=== PATIENT | female | born 1990 | race Hispanic/Latino ===

== ENCOUNTER 2017-07-24 20:44 | Emergency (ER) | payer MEDICAID, OTHER ==
[2017-07-24 20:44] VITALS: BMI 33.6
[2017-07-24 21:02] VITALS: BP 104/76; PULSE 80; RESP 14; TEMP 98.2; O2SAT 98
--- NOTE | 2017-07-24 22:03 | C.PDOC ---
History Of Present Illness 26 y/o female with PMHx of chronic low back pain presents to the ED complaining of exacerbation of back pain for the last 4 days. Patient denies any abdominal pain, dysuria, frequency, incontinence of urine/stool, fever, chills, numbness, tingling, or radiation of pain. Plant Protection Guard states patient took Tylenol at home with minimal relief, and requests stronger pain medication be given in the ED. Time Seen by Provider: 07/24/17 21:15 Chief Complaint (Nursing): Back Pain History Per: Patient History/Exam Limitations: no limitations Onset/Duration Of Symptoms: Days Current Symptoms Are (Timing): Still Present Previous Symptoms: Chronic Pain Past Medical History Reviewed: Historical Data, Nursing Documentation, Vital Signs Vital Signs: Last Vital Signs Temp 98.2 F 07/24/17 20:59 Pulse 80 07/24/17 20:59 Resp 14 07/24/17 20:59 BP 104/76 07/24/17 20:59 Pulse Ox 98 07/25/17 00:05 - Medical History PMH: Anemia, Bipolar Disorder, Gastritis Denies: Depression, Chronic Kidney Disease Surgical History: - [facility] Procedures INJECT/INFUSE ELECTROLYT (08/07/12) INJECT/INFUSE NEC (09/18/14) VENOUS PUNCTURE NEC (06/19/11) Family History: States: No Known Family Hx - Social History Hx Tobacco Use: Yes Hx Alcohol Use: Yes Hx Substance Use: No - Immunization History Hx Tetanus Toxoid Vaccination: No Hx Influenza Vaccination: No Hx Pneumococcal Vaccination: No Review Of Systems Constitutional: Negative for: Fever, Chills Genitourinary: Negative for: Dysuria, Frequency, Incontinence Musculoskeletal: Positive for: Back Pain Neurological: Negative for: Weakness, Numbness Physical Exam - Physical Exam Appears: Non-toxic, No Acute Distress Skin: Normal Color, Warm, Dry Head: Atraumatic, Normacephalic Eye(s): bilateral: Normal Inspection, PERRL, EOMI Oral Mucosa: Moist Neck: Normal ROM, Supple Chest: Symmetrical Cardiovascular: Rhythm Regular Respiratory: No Accessory Muscle Use Gastrointestinal/Abdominal: Soft, No Tenderness, No Distention Back: Normal Inspection, Vertebral Tenderness (tenderness across the lumbosacral region), No Decreased ROM, Straight Leg Raising (negative) Extremity: Normal ROM (with full ROM of lower extremities), No Tenderness, No Deformity Extremity: Bilateral: Atraumatic, Normal Color And Temperature Pulses: Left Dorsalis Pedis: Normal, Right Dorsalis Pedis: Normal Neurological/Psych: Oriented x3, Normal Speech, Normal Motor, Normal Sensation, Other (No focal deficits) Gait: Steady ED Course And Treatment O2 Sat by Pulse Oximetry: 98 (RA) Pulse Ox Interpretation: Normal Progress Note: Patient advised to take Motrin for pain control and follow up with PMD for further evaluation. Also offered Flexeril prescription to take home. Patient now reports concern for . Informed patient of negative urine HCG. Patient is not satisfied and requests blood test prior to receiving rx for muscle relaxant. LMP was 06/08/17. Of note, patient has history of irregular menses. Patient advised that confirmation of thru blood is not necessary for motrin at this time. Informed patient that further testing is not indicated in the ED at this time and she needs OB follow up if concern. Patient is unhappy with discharge plan, and left the ED without discharge instructions/prescriptions. Disposition Counseled Patient/Family Regarding: Diagnosis, Need For Followup - Disposition Disposition: ELOPEMENT - ER ONLY Disposition Time: 22:02 Condition: STABLE Forms: [facility] ([place]) - POA Present On Arrival: None - Clinical Impression Clinical Impression: Low back pain - PA / NIB ASSEMBLER / Resident Statement MD/DO has reviewed & agrees with the documentation as recorded. - Scribe Statement The provider has reviewed the documentation as recorded by the Scribe (Gia Smith) All medical record entries made by the Scribe were at my direction and personally dictated by me. I have reviewed the chart and agree that the record accurately reflects my personal performance of the history, physical exam, medical decision making, and the department course for this patient. I have also personally directed, reviewed, and agree with the discharge instructions and disposition.
== END 2017-07-24 21:15 | disposition left against medical advice (07) ==
LOC: C.ER 20:44
DX: M54.5 Low back pain (principal)

== ENCOUNTER 2017-08-15 18:20 | Emergency (ER) | payer MEDICAID, OTHER ==
[2017-08-15 18:20] VITALS: BMI 33.6
[2017-08-15 18:38] VITALS: RESP 18; TEMP 98.1
[2017-08-15] MEDS ORDERED: Sodium Chloride 0.9% 1,000 ML IV ONE (19:06)
[2017-08-15] MEDS ORDERED: Sodium Chloride 0.9% 1,000 ML ONE (19:23)
[2017-08-15 19:24] LABS: BASO % 0.7 % (0.0-2.0); EOS # 0.1 K/uL (0.0-0.7); EOS % 1.4 % (0.0-4.0); HEMOGLOBIN 11.6 g/dL (11.0-16.0); LYMPH # 2.1 K/uL (1.0-4.3); MEAN CELL VOLUME 76.2 fL (81.0-99.0); MEAN CORPUSCULAR HEMOGLOBIN 24.5 pg (27.0-31.0); MEAN CORPUSCULAR HGB CONC 32.1 g/dL (33.0-37.0); MEAN PLATELET VOLUME 8.9 fL (7.2-11.7); MONO # 0.3 K/uL (0.0-0.8); MONO % 5.5 % (0.0-10.0); NEUT # 3.4 K/uL (1.8-7.0); NEUT % 57.4 % (50.0-75.0); NRBC % 0.1 % (0.0-2.0); RBC 4.75 Mil/uL (3.80-5.20); WHITE BLOOD COUNT 5.9 K/uL (4.8-10.8)
[2017-08-15 19:30] LABS: HCG,QUALITATIVE URINE NEGATIVE (NEGATIVE)
[2017-08-15 19:35] LABS: SQUAMOUS EPITHIAL 19 /hpf (0-5); URINE BACTERIA RARE (<OCC); URINE BILIRUBIN NEGATIVE (NEGATIVE); URINE BLOOD NEGATIVE (NEGATIVE); URINE CALCIUM OXALATE CRYSTALS MOD /hpf (<OCC); URINE CLARITY Hazy (Clear); URINE COLOR Yellow (YELLOW); URINE GLUCOSE (UA) NORMAL (Normal); URINE LEUKOCYTE ESTERASE 2+ Leu/uL (Negative); URINE PROTEIN NEGATIVE (NEGATIVE); URINE UROBILINOGEN NORMAL mg/dL (0.2-1.0)
[2017-08-15 19:37] LABS: ALB/GLOB RATIO 1.7 (1.0-2.1); ALBUMIN 4.3 g/dL (3.5-5.0); ALT/SGPT 19 U/L (9-52); AST/SGOT 17 U/L (14-36); BLOOD UREA NITROGEN 8 mg/dL (7-17); CALCIUM 9.3 mg/dl (8.6-10.4); GFR AFRICAN-AMERICAN > 60; GFR NON-AFRICAN AMERICAN > 60; LIPASE 36 U/L (23-300)
[2017-08-15 19:45] LABS: BARBITURATES, UR NEGATIVE (NEGATIVE); BENZODIAZEPINES, UR NEGATIVE (NEGATIVE); OPIATES, UR NEGATIVE (NEGATIVE); PHENCYCLIDINE, UR NEGATIVE (NEGATIVE)
--- NOTE | 2017-08-15 21:03 | C.PDOC ---
History Of Present Illness 26 year old female presents to the ER with a complaint of crampy lower abdominal discomfort. Patient is concerned she may be , she wants her verified by serum and urine. Denies dysuria or constipation. Time Seen by Provider: 08/15/17 19:02 Chief Complaint (Nursing): Abdominal Pain History Per: Patient History/Exam Limitations: no limitations Onset/Duration Of Symptoms: Days Current Symptoms Are (Timing): Still Present Quality Of Discomfort: Cramping Associated Symptoms: denies: Fever, Chills, Nausea, Vomiting, Constipation, Other (Dysuria) Exacerbating Factors: None Alleviating Factors: None Recent travel outside of the [place]: No Abnormal Vaginal Bleeding: No Past Medical History Reviewed: Historical Data, Nursing Documentation, Vital Signs Vital Signs: Last Vital Signs Temp 98.1 F 08/15/17 21:29 Pulse 81 08/15/17 21:29 Resp 18 08/15/17 21:29 BP 112/70 08/15/17 21:29 Pulse Ox 98 08/15/17 21:29 - Medical History PMH: Anemia, Bipolar Disorder, Gastritis Surgical History: No Surg Hx - [facility] Procedures INJECT/INFUSE ELECTROLYT (08/07/12) INJECT/INFUSE NEC (09/18/14) VENOUS PUNCTURE NEC (06/19/11) Family History: States: Unknown Family Hx - Social History Hx Tobacco Use: Yes Hx Alcohol Use: No Hx Substance Use: No - Immunization History Hx Tetanus Toxoid Vaccination: No Hx Influenza Vaccination: Yes Hx Pneumococcal Vaccination: No Review Of Systems Constitutional: Negative for: Fever, Chills Cardiovascular: Negative for: Chest Pain, Palpitations Respiratory: Negative for: Cough, Shortness of Breath Gastrointestinal: Positive for: Abdominal Pain. Negative for: Constipation Genitourinary: Negative for: Dysuria Physical Exam - Physical Exam Appears: Non-toxic, No Acute Distress, Other (Morbidly obese) Skin: Normal Color, Warm, Dry Head: Atraumatic, Normacephalic Eye(s): bilateral: Normal Inspection Oral Mucosa: Moist Neck: Normal, Supple Chest: Symmetrical, No Tenderness Cardiovascular: Rhythm Regular Respiratory: Normal Breath Sounds, No Rales, No Rhonchi, No Wheezing Gastrointestinal/Abdominal: Soft, No Tenderness Back: No CVA Tenderness Extremity: Normal ROM (x4) Neurological/Psych: Oriented x3, Normal Speech ED Course And Treatment - Laboratory Results Result Diagrams: 08/15/17 19:20 08/15/17 19:20 Lab Interpretation: Abnormal (UA 39 WBC's) Urine POC: Negative (quant HCG neg.) ECG Interpretation: Normal O2 Sat by Pulse Oximetry: 100 Pulse Ox Interpretation: Normal - Radiology CXR: Interpreted by Me CXR Interpretation: Yes: No Acute Disease - Other Rad abd x 2 X-Ray: Interpreted by Me (+FOS) Reevaluation Time: 21:04 Reassessment Condition: Improved Medical Decision Making Medical Decision Making: constipation vs mild UTI pt declines pelvic exam in ED, rather f/u with [facility] Disposition Doctor Will See Patient In The: Office Counseled Patient/Family Regarding: Studies Performed, Diagnosis - Disposition Referrals: Latasha Kelley MD [Medical Doctor] - Disposition: HOME/ ROUTINE Disposition Time: 21:04 Condition: GOOD Additional Instructions: UTI: Macrobid 100 mg twice a day to complete 3 days Pyridium 100 mg once every 8 hours for bladder irritation. Follow-up with [facility] for Pelvic exam as indicated. Constipation: Trial a laxative to relieve your lower abdominal crampy discomfort re-evaluate after using the bathroom 2-3 times. Diet and exercise changes Prescriptions: Nitrofurantoin Macrocrystals [Macrobid] 100 mg PO BID #5 cap Phenazopyridine HCl [Pyridium] 100 mg PO TID PRN #6 tablet PRN Reason: dysuria Instructions: Urinary Tract Infections in Adults, Constipation, Adult (DC) Forms: [facility] ([place]) - Clinical Impression Clinical Impression: Bilateral lower abdominal discomfort - Scribe Statement The provider has reviewed the documentation as recorded by the Scribsandra Zacarias All medical record entries made by the Scribe were at my direction and personally dictated by me. I have reviewed the chart and agree that the record accurately reflects my personal performance of the history, physical exam, medical decision making, and the department course for this patient. I have also personally directed, reviewed, and agree with the discharge instructions and disposition.
[2017-08-15 21:29] VITALS: BP 112/70; PULSE 81
[2017-08-16 00:05] VITALS: O2SAT 100
--- NOTE | 2017-08-16 10:18 | RAD ---
Date of service: 08/15/2017 PROCEDURE: Radiographs of the chest and abdomen (obstructive series) HISTORY: Abdominal pain COMPARISON: No prior. TECHNIQUE: AP radiograph of the chest, with upright and supine radiographs of the abdomen. FINDINGS: CHEST: Lungs: The lungs are well inflated and clear. Cardiovascular: Normal size heart. No pulmonary vascular congestion. Pleura: No pleural fluid. No pneumothorax. Other findings: None. ABDOMEN AND PELVIS: Bowel: There is moderate amount of stool in the colon. No evidence of mechanical obstruction. Free air: None. Bones: Unremarkable. Other findings: None. IMPRESSION: Constipation. Nonobstructive bowel-gas pattern. Clear lungs.
== END 2017-08-15 21:29 | disposition home or self-care (01) ==
LOC: C.ER 18:20
DX: R10.30 Lower abdominal pain, unspecified (principal); D64.9 Anemia, unspecified; F31.9 Bipolar disorder, unspecified
CPT/HCPCS: 74022; 80053; 80320; 80324; 80345; 80346; 80349; 80353; 80358; 80361; 81001; 83690; 83992; 84702; 84703; 85025; 96360; 99285; J7030

== ENCOUNTER 2017-09-09 20:25 | Emergency (ER) | payer MEDICAID ==
[2017-09-09 20:25] VITALS: BMI 33.6
[2017-09-09 20:36] VITALS: BP 118/80; PULSE 92; RESP 18; TEMP 98.4; O2SAT 98
[2017-09-09 20:57] LABS: SQUAMOUS EPITHIAL 8 /hpf (0-5); URINE BILIRUBIN NEGATIVE (NEGATIVE); URINE BLOOD NEGATIVE (NEGATIVE); URINE CLARITY Hazy (Clear); URINE COLOR Yellow (YELLOW); URINE GLUCOSE (UA) NORMAL (Normal); URINE LEUKOCYTE ESTERASE NEG Leu/uL (Negative); URINE PROTEIN NEGATIVE (NEGATIVE)
[2017-09-09 20:59] LABS: HCG,QUALITATIVE URINE NEGATIVE (NEGATIVE)
--- NOTE | 2017-09-09 21:22 | C.PDOC ---
History Of Present Illness 26 yo female come in for evaluation of B/L breast pain noted for past 3 days. Pt describes as " my nipple are very sensitive and breast feels full". Pt reports LNMP 08/28/17. Otherwise, pt denies fever, chills, known trauma or injury , sore throat, cough, CP, SOB, denies nipple discharges, previous hx of breast pathology, abd. pain, N/V/D, UTI sx, vaginal irritation or discharge. Ambulate to Ed for evaluation, not in any apparent distress. Time Seen by Provider: 09/09/17 20:28 Chief Complaint (Nursing): Breast Problem History Per: Patient Past Medical History Reviewed: Historical Data, Nursing Documentation, Vital Signs Vital Signs: Last Vital Signs Temp 98.4 F 09/09/17 20:33 Pulse 92 H 09/09/17 20:33 Resp 18 09/09/17 20:33 BP 118/80 09/09/17 20:33 Pulse Ox 98 09/09/17 20:33 - Medical History PMH: Anemia, Bipolar Disorder, Gastritis Denies: Depression, Chronic Kidney Disease - [facility] Procedures INJECT/INFUSE ELECTROLYT (08/07/12) INJECT/INFUSE NEC (09/18/14) VENOUS PUNCTURE NEC (06/19/11) Family History: States: Unknown Family Hx - Social History Hx Tobacco Use: Yes Hx Alcohol Use: No Hx Substance Use: No - Immunization History Hx Tetanus Toxoid Vaccination: No Hx Influenza Vaccination: Yes Hx Pneumococcal Vaccination: No Review Of Systems Except As Marked, All Systems Reviewed And Found Negative. Constitutional: Negative for: Fever, Chills ENT: Negative for: Throat Pain Cardiovascular: Negative for: Chest Pain, Palpitations Respiratory: Negative for: Cough, Shortness of Breath Gastrointestinal: Negative for: Nausea, Vomiting, Abdominal Pain, Diarrhea Genitourinary: Negative for: Dysuria, Incontinence, Vaginal Discharge, Vaginal Bleeding, Pelvic Pain Musculoskeletal: Negative for: Neck Pain Skin: Negative for: Rash Neurological: Negative for: Weakness, Numbness, Headache, Dizziness Physical Exam - Physical Exam Appears: Well, Non-toxic, No Acute Distress Skin: Normal Color, Warm, Dry, No Rash Head: Normacephalic Eye(s): bilateral: PERRL Nose: No Normal, No Discharge Oral Mucosa: Moist, No Drooling Tongue: Normal Appearing Lips: Normal Appearing Throat: No Erythema Neck: Trachea Midline, Supple Lymphatic: No Axilla Node Tenderness (B/L) Chest: Other (B/L breast: normla exam, no edmea, no erythema, no palpable mass.) Cardiovascular: Rhythm Regular, No Murmur, No JVD Respiratory: No Decreased Breath Sounds, No Accessory Muscle Use, No Stridor, No Wheezing Gastrointestinal/Abdominal: Soft, No Tenderness, No Distention, No Guarding Back: No CVA Tenderness Extremity: Normal ROM, No Pedal Edema Neurological/Psych: Oriented x3, Normal Speech ED Course And Treatment - Laboratory Results Urine POC: Negative O2 Sat by Pulse Oximetry: 98 Pulse Ox Interpretation: Normal Progress Note: On re-evaluation, pt is afebrile, hemodynamicaly stable. NOn- toxic. PulsEOx 98% RA. ENT: no acute findings. Lungs: CTA B/L, BS equal B/L. Breast exam: normal B/L. Abd: benign, (-) guarding, (-) rebound. Back: (-) CVA tenderness. UA results review normal study. preg (-). Pt advised and ref. to f/u with [facility] in 2-3 days for re-eval. returbn to ED if any worsening or new changes. Disposition Counseled Patient/Family Regarding: Studies Performed, Diagnosis, Need For Followup - Disposition [facility] Disposition: HOME/ ROUTINE Disposition Time: 21:19 Condition: STABLE Additional Instructions: Follow up with ST[facility] C[facility] in 2-3 days for re-evaluation. return if any new changes. Instructions: Mastalgia - Clinical Impression Clinical Impression: Pain of breast
== END 2017-09-09 21:41 | disposition home or self-care (01) ==
LOC: C.ER 20:25
DX: N64.4 Mastodynia (principal)